=== PATIENT | female | born 1990 | race Hispanic/Latino ===

== ENCOUNTER 2019-02-13 20:39 | Emergency (ER) | payer OTHER, SELFPAY ==
[2019-02-13 21:15] LABS: #Basophils 0.1 thou/uL (0.0-0.2); #Eosinphils 0.1 thou/uL (0.0-0.7); #Lymphocytes 2.9 thou/uL (1.20-3.40); #Monocytes 0.7 thou/uL (0.11-0.59); #Neutrophils 5.2 thou/uL (1.40-6.50); %Basophils 0.8 % (0.0-1.0); %Eosinophils 1.1 % (0.0-10.0); %Lymphocytes 32.4 % (21.0-51.0); %Monocytes 7.2 % (0.0-10.0); %Neutrophils 58.5 % (42.0-75.0); Hemoglobin 12.5 g/dL (12.0-16.0); Mean Corpuscular HGB CONC 35.9 g/dL (32.0-36.0); Mean Corpuscular Hemoglobin 32.5 pg (27.0-31.0); Mean Corpuscular Volume 90.6 fL (78.0-98.0); Mean Platelet Volume 9.2 fL (7.4-10.4); Platelet Count 153 thou/uL (130-400); RBC Distribution Width 12.8 % (11.5-14.5); Red Blood Cell (RBC) Count 3.85 mill/uL (4.20-5.40); White Blood Cell (WBC) Count 8.9 thou/uL (4.8-10.8)
[2019-02-13 21:26] LABS: Bacteria/HPF 4+ HPF (None Seen); Bilirubin Negative (Negative); Blood, Urine Negative (Negative); Clarity Clear (Clear); Glucose, Urine (Dipstick) Normal (Negative); Leukocyte 250 Leu/uL (Negative); Nitrite Negative (Negative); Protein, Urine (Dipstick) Negative (Neg-Trace); RBC/HPF 0-3 HPF (0-3); Transitional Epithelial 0-3 HPF (None Seen); Urobilinogen Normal mg/dL (Less than 2)
[2019-02-13 21:36] LABS: ALT (SGPT) 12 U/L (8-55); AST (SGOT) 13 U/L (5-34); Alkaline Phosphatase 43 U/L (40-150); Anion Gap 11 mmol/L (10-20); BUN (Urea Nitrogen) 6 mg/dL (7.0-18.7); Bilirubin, Total 0.3 mg/dL (0.2-1.2); Calc. Creatinine Clearance 0 mL/min (70-130); Carbon Dioxide 23 mmol/L (22-29); Chloride 103 mmol/L (98-107); Estimated GFR-MDRD Greater than 90; Globulin 3.1 g/dL (2.4-3.5); Glucose 81 mg/dL (70-105); Potassium 3.4 mmol/L (3.5-5.1); Protein, Total 7.1 g/dL (6.0-8.3); Sodium 134 mmol/L (136-145)
== END 2019-02-13 22:32 | disposition home or self-care (01) ==
LOC: ERS 20:39
DX: O23.42 Unspecified infection of urinary tract in pregnancy, second trimester (principal); O99.342 Other mental disorders complicating pregnancy, second trimester; F41.0 Panic disorder [episodic paroxysmal anxiety]; Z3A.16 16 weeks gestation of pregnancy
CPT/HCPCS: 36415; 80053; 81003; 81015; 85025

== ENCOUNTER 2019-07-08 05:34 | Day surgery (SDC) | payer OTHER ==
[2019-07-08 06:10] VITALS: BP 109/66; TEMP 98; BMI 30.2
--- NOTE | 2019-07-08 06:30 | PDOC.FPROB ---
FMR OB H&P: HPI - History of Present Illness Chief Complaint: Contractions Indentification: History of Present Illness: Patient is a 28 y/o who presents to the Labor & Delivery Floor for evaluation of contractions. Patient states that she started feeling contractions intermittently yesterday afternoon, but was not overly concerned. She characterized them as sporadically feeling like a cramping sensation in her lower abdomen, as well as her upper abdomen and lower back. She denied any loss of fluids, and stated that she can feel her baby moving appropriately. She states that her previous pregnancies all had variable contractions, and she is unsure if these contractions are similar to those that she has felt in the past. She denies any recent illness or trauma - although she did admit to bumping her ABD against a door recently. She denies fevers, chills, headaches, changes in vision, CP or SOB, dysuria, hematuria, diarrhea or known sick contacts. She received her flu shot this year, and states that her has been relatively uneventful thus far. Primary Care Physician: [facility] - Dr. De León FMR OB H&P: Current - Care : 4 Para: 2 Gestational age: 37.1 Due date: 07/28/19 Dating Criteria: 10.5W US - OB Labs Blood type: A RH: positive Antibody Screen: negative HIV: negative RPR: negative HepBsAg: negative Rubella: immune Quad screen: unknown Urine drug screen: not done Gonorrhea: unknown GBS: unknown - First Trimester Ultrasound First trimester: 10.5W FMR OB H&P: History - Past Medical History PMH: Anxiety - OB History OB History: -Both children born via -Miscarriage occurred before 20W - cause unknown - Surgical History Sx History: None - Social History Social History: Denies x3. Currently is a [id number] parent. - Family History Family History: Father has lung cancer (type unknown) and mother has Lupus. FMR OB H&P: Medications - Current Home Medications: Medication Instructions Recorded Confirmed Type Iron 18 mg PO DAILY 05/16/14 07/08/19 History Vitamin 1 tab PO DAILY #0 tab 05/19/14 07/08/19 Rx Allergies/Adverse Reactions: Allergies Allergy/AdvReac Type Severity Reaction Status Date / Time Iodine and Iodide Containing Allergy Severe HIVES, Verified 07/08/19 06:00 Produc THROAT SWELLING FMR OB H&P: ROS - Review of Systems General: denies: fever/chills, weight/appetite/sleep changes, fatigue, recent trauma Eyes: denies: vision changes ENT: denies: rhinorrhea Cardiovascular: denies: chest pain, edema Respiratory: denies: cough, shortness of breath Gastrointestinal: denies: nausea, vomiting, diarrhea, bright red blood, dark black tarry stools Genitourinary (Female): reports: contractions. denies: dysuria, hematuria, vaginal discharge, vaginal bleeding Neurologic: denies: syncope, weakness, loss of counsciousness Psychological: reports: anxiety FMR OB H&P: Vital Signs - Maternal Vital signs: Vital Signs - First Documented Temp Pulse Resp BP 98.0 F 77 18 109/66 07/08/19 05:58 07/08/19 05:58 07/08/19 05:58 07/08/19 05:58 - Heart Tones Baseline: 140 Variability: moderate Acceleration: present Deceleration: absent Category: category 1 FMR OB H&P: Physical Exam - Physical Exam General: NAD, awake, alert and oriented Deviation from normal: Patient had 3 rapid episodes of non-bloody vomiting during exam. HEENT: normocephalic and atraumatic, PERRLA, MMM, conjunctiva clear, no scleral icterus, grossly normal vision, grossly normal hearing, normal nasal mucosa, oropharynx clear Neck: supple, FROM, trachea midline, no LAD Chest: non-tender to palpation, no lesions Breast: symmetric Heart: RRR, normal S1/S2, no murmurs/rubs/gallops, pulses present, no edema General: CTAB, no respiratory distress, good air movement, no rales/rhonchi, no wheezing, no retractions Abdomen: gravid, non-tender, no masses, no hernias Musculoskeletal: pulses present, FROM in all four extremities, no misalignment/ asymmetry, no atrophy Neurological: sensation to pain,touch and proprioception grossly normal Skin: no rash, good tugor, no jaundice Lymphatic: no unusual bruising or bleeding, no purpura, no petechia Psychiatric: intact recent and remote memory, normal mood and affect FMR OB H&P: A/P - Problem List (1) Intrauterine Current Visit: Yes Status: Acute Code(s): Z34.90 - ENCNTR FOR SUPRVSN OF NORMAL , UNSP, UNSP TRIMESTER (2) Uterine contractions Current Visit: Yes Status: Acute Code(s): FQH1722 - Disposition: Patient is a 28 y/o who presents to the Labor and Delivery Floor for evaluation of contractions. 1. Contractions -Q6-8M w/o loss of fluid or movement -Maternal VSS -FHTs in 140s w/ appropriate variability and accelerations - decels absent -Physical exam unremarkable - no loss of fluid or bloody show noted on L&D Floor -Possibly related to dehydration or sub-acute GI illness distress -Encourage PO hydration -SVE (614): /3 -Continue SVEs Q2H to assess for cervical change 2. SIUP -Continue plan as per above -GBS: Pending - Patient does not meet criteria for ABx Prophylaxis Dispo: Observe patient on L&D Floor for minimum of 4H with Q2H SVEs. Continue to monitor maternal and vital signs and encourage PO intake as per above. Expected LOS <24H Discussion: Date/Time: 07/08/19 0630 This H&P was discussed with Dr. Rivera who agree with the above documentation and plan. Addendum - Attending - Attending Attestation Date/Time: 07/08/19 0750 I personally evaluated the patient and discussed the management with Dr. Lo. I agree with the History, Examination, Assessment and Plan documented above. Pt 37w1d with possible early labor. Will continue to monitor at this time.
[2019-07-08] MEDS ORDERED: hydrALAZINE 20 MG/ML VIAL SLOW IVP PRN (07:09)
[2019-07-08] MEDS ORDERED: Ondansetron ORAL SOLN. 4 MG/5 ML UDCUP PO PRN (07:10)
[2019-07-08] MEDS ORDERED: Ondansetron ODT 4 MG TAB PO PRN (07:45)
--- NOTE | 2019-07-08 08:22 | PDOC.BPN ---
- Brief Progress Note Patient is a 28 y/o who presents to the Labor and Delivery Floor for evaluation of contractions. Labor Check: 0800 1. Contractions -Q6-8M w/o loss of fluid or movement -Maternal VSS -FHTs in 140s w/ appropriate variability and accelerations - decels absent -Physical exam unremarkable - no loss of fluid or bloody show noted on L&D Floor -Possibly related to dehydration or sub-acute GI illness distress - no repeat episodes of vomiting since last evaluation -Continue to encourage PO hydration -SVE (0615): 2/40/-3 -SVE (0800): 2/40/-3 -Continue SVEs Q2H to assess for cervical change - consider DC if SVE remains unchanged 2. SIUP -Continue plan as per above -GBS: Pending - Patient does not meet criteria for ABx Prophylaxis Dispo: Observe patient on L&D Floor for minimum of 4H with Q2H SVEs. Continue to monitor maternal and vital signs and encourage PO intake as per above. Expected LOS <24H
--- NOTE | 2019-07-08 10:35 | PDOC.BPN ---
<Kavita De León - Last Filed: 07/08/19 10:19> - Brief Progress Note Cervical check /3, unchanged from prior exam CTX spaced out with oral hydration, pt reports improvement as well Patient feels much improved, nausea resolved. Thinks ate a bad salad last night. Doesn't desire nausea meds PRN to pharmacy but advised to call up here if sxs worsen. FHT reactive & reassuring Discussed with patient labor precautions Has scheduled appt at [facility] on 07/17. Asked to call Tuesday to schedule one for this week. <Hang Nolan - Last Filed: 07/08/19 11:19> - Brief Progress Note Faculty note: I have seen the patient at bedside. Agree with plan. Stable for outpatient acre. Care reviewed/
== END 2019-07-08 10:15 | disposition home or self-care (01) ==
LOC: L&D/OP 05:34
PROVIDERS: ATTEND Obstetrics & Gynecology
DX: O47.1 False labor at or after 37 completed weeks of gestation (principal); Z3A.37 37 weeks gestation of pregnancy; Z79.899 Other long term (current) drug therapy; Z91.041 Radiographic dye allergy status
CPT/HCPCS: Q0162

== ENCOUNTER 2019-07-22 20:32 | Inpatient (IN) | payer MEDICAID, OTHER ==
--- NOTE | 2019-07-22 20:50 | PDOC.FPROB ---
FMR OB H&P: HPI - History of Present Illness Chief Complaint: eIOL Indentification: 28yo @ 39.1wks by 10.5wk sono/LMP History of Present Illness: Henny is a healthy 28 yoF who presents for eIOL. Primary Care Physician: [facility] - Dr. Kavita De León MD FMR OB H&P: Current - Care : 4 Para: 2011 Gestational age: 39.1 Due date: 07/28/2019 Dating Criteria: 10.5wk sono / LMP - OB Labs Blood type: A RH: positive Antibody Screen: negative HIV: negative RPR: negative HepBsAg: negative Rubella: immune Gonorrhea: negative Chlamydia: negative Pap Smear: NILM 11/2018 1 hour gtt: 97 - passed GBS: negative FMR OB H&P: History - Past Medical History PMH: Denies - OB History OB History: @ 40 wks. @ 38 wks. 1 spontaneous - WELT BEATER History WELT BEATER History: h/o chlamydia, treated. Not during this . - Surgical History Sx History: Denies - Social History Social History: Denies tobacco, alcohol, or illicit drug use. - Family History Family History: + for DM and SLE FMR OB H&P: Medications - Current Home Medications: Medication Instructions Recorded Confirmed Type Iron 18 mg PO DAILY 05/16/14 07/22/19 History Vitamin 1 tab PO DAILY #0 tab 05/19/14 07/22/19 Rx Allergies/Adverse Reactions: Allergies Allergy/AdvReac Type Severity Reaction Status Date / Time Iodine and Iodide Containing Allergy Severe HIVES, Verified 07/08/19 06:00 Produc THROAT SWELLING FMR OB H&P: ROS - Review of Systems General: denies: fever/chills, weight/appetite/sleep changes, night sweats, fatigue Eyes: denies: eye pain, vision changes ENT: denies: nasal congestion, rhinorrhea, sore throat Cardiovascular: denies: chest pain, palpitation Respiratory: denies: cough, congestion Gastrointestinal: denies: abdominal pain, cramping, nausea, vomiting, diarrhea Genitourinary (Female): reports: vaginal discharge. denies: dysuria, hematuria , vaginal pain, vaginal bleeding, vaginal mass/sore, contractions, vaginal pressure Musculoskeletal: denies: pain, stiffness Neurologic: denies: numbness, syncope, seizures, weakness Integumentary: denies: itching, rash Breast: denies: lumps, bumps FMR OB H&P: Vital Signs - Maternal Vital signs: 109/66, 55bpm, 98.4F - Heart Tones Baseline: 135 Variability: moderate Acceleration: present Deceleration: absent Category: category 1 [place] contractions every: irregular FMR OB H&P: Physical Exam - Physical Exam General: NAD, awake, alert and oriented HEENT: normocephalic and atraumatic, PERRLA, EOMI, MMM, conjunctiva clear, grossly normal vision, grossly normal hearing Neck: FROM, trachea midline Breast: symmetric Heart: RRR, normal S1/S2, no murmurs/rubs/gallops General: CTAB, no respiratory distress, good air movement Abdomen: soft, gravid, non-tender Musculoskeletal: normal gait and station, pulses present Neurological: cranial nerves II through XII intact Skin: no rash, good tugor Lymphatic: no unusual bruising or bleeding Psychiatric: intact recent and remote memory, good judgement and insight - Pelvic Exam Vulva: normal hair distribution SVE: 250/-2 Limon score: 5 Membranes: Intact Presentation: Cephalic FMR OB H&P: Results - Imaging Imaging: Bedside US: cephalic presentation. [place] ~10. Anterior placenta. FMR OB H&P: A/P - Problem List (1) Intrauterine Status: Acute Code(s): Z34.90 - ENCNTR FOR SUPRVSN OF NORMAL , UNSP, UNSP TRIMESTER Disposition: Term sIUP, eIOL @ 39.1wks EGA - GBS negative. Unremarkable course. Baby Boy - Erik. - Initial check 50/-2. Posterior, soft. Limon of 5. - Plan for cytotec induction of labor. Will reassess 4 hours after placement of cytotec. - Patient desires epidural. Discussion: Date/Time: 07/22/192048 This H&P was discussed with Drs. Moss and Yang who agree with the above documentation and plan. Addendum - Attending - Attending Attestation Date/Time: 07/22/192151 I personally evaluated the patient and discussed the management with Dr. Bay I agree with the History, Examination, Assessment and Plan documented above with any addition or exceptions noted below. 28 yo female at 39.1 wks here for eIOL. Will proceed with miso for induction. Low risk . Cephalic presentation. EFW 7.5 lbs. Reactive tracing. Recheck in 4 hours. Mary
[2019-07-22] MEDS ORDERED: Butorphanol Tartrate 1 MG/ML VIAL SLOW IVP PRN (21:25)
[2019-07-22] MEDS ORDERED: NS / Oxytocin 40 units/1000ml 1,000 ML IV PRN (21:25)
[2019-07-22] MEDS ORDERED: Carboprost 250 MCG/ML AMP IM PRN (21:25)
[2019-07-22] MEDS ORDERED: Promethazine HCl 25 MG/ML VIAL IM PRN (21:25)
[2019-07-22] MEDS ORDERED: Ibuprofen 800 MG TAB PO PRN (21:25)
[2019-07-22] MEDS ORDERED: Acetaminophen 500 MG TAB PO PRN (21:25)
[2019-07-22] MEDS ORDERED: Methylergonovine 0.2 MG/ML VIAL IM PRN (21:25)
[2019-07-22] MEDS ORDERED: Lidocaine 1% (PF) 30 ML VIAL SC PRN (21:25)
[2019-07-22] MEDS ORDERED: Misoprostol 200 MCG TAB PR PRN (21:25)
[2019-07-22] MEDS ORDERED: hydrALAZINE 20 MG/ML VIAL SLOW IVP PRN (21:25)
[2019-07-22] MEDS ORDERED: Ondansetron PF 4 MG/2 ML Vial IVP PRN (21:25)
[2019-07-22] MEDS ORDERED: Diphenoxylate HCl/Atropine Tablet PO PRN (21:25)
[2019-07-22 22:10] VITALS: BMI 29.5
[2019-07-22 22:29] LABS: Hemoglobin 12.5 g/dL (12.0-16.0); Mean Corpuscular HGB CONC 35.2 g/dL (32.0-36.0); Mean Corpuscular Volume 90.9 fL (78.0-98.0); Mean Platelet Volume 10.8 fL (7.4-10.4); Platelet Count 152 thou/uL (130-400); RBC Distribution Width 14.5 % (11.5-14.5); Red Blood Cell (RBC) Count 3.91 mill/uL (4.20-5.40); White Blood Cell (WBC) Count 9.8 thou/uL (4.8-10.8)
[2019-07-22] MEDS: Misoprostol 100 MCG TAB VAG SCH (22:40)
[2019-07-22] MEDS: Lactated Ringer's 1,000 ML IV SCH (22:41)
[2019-07-22 23:08] LABS: Syphilis Antibody Nonreactive (Nonreactive); Syphilis Antibody Index 0.04 S/CO (<1.00 Non-Reactive)
[2019-07-22 23:13] LABS: HBSAg Index 0.21 S/CO (0-0.99); Hep B Surf Ag Non-Reactive S/CO (NonReactive)
--- NOTE | 2019-07-23 02:00 | PDOC.LDPN ---
Labor & Delivery Progress Note - Subjective Subjective: comfortable, painful contractions, vaginal pressure - Objective Vital signs reviewed and normal: yes General: NAD, resting, breathing through contractions Uterine fundus: tender to palpation SVE: /-2 FHT: category 1 [place] contractions every: 2-3 - Assessment (1) Intrauterine Code(s): Z34.90 - ENCNTR FOR SUPRVSN OF NORMAL , UNSP, UNSP TRIMESTER Status: Acute Plan: continue plan of care, labor augmentation -: Term sIUP, eIOL @ 39.1wks EGA - GBS negative. Unremarkable course. Baby Boy - Erik. - Initial check 50/-2. Posterior, soft. Limon of 5. - /-2 @ 2200, cytotect placed. - /-2 @ 0200 - Will monitor and recheck in 2 hours to evaluate for labor augmentation. Addendum - Attending - Attending Attestation Date/Time: 07/23/19 3140 I personally evaluated the patient and discussed the management with Dr. Bay I agree with the History, Examination, Assessment and Plan documented above with any addition or exceptions noted below. Continue current plan. Doing well. Cat 1 tracing. Repeat exam in 2 hours. Mary
[2019-07-23] MEDS: Lactated Ringer's 1,000 ML IV SCH (02:01)
[2019-07-23] MEDS ORDERED: Fentanyl 4 mcg/Bup 0.1% Cadd 100 ML ONE (02:07)
[2019-07-23] MEDS ORDERED: NS / Oxytocin 40 units/1000ml 1,000 ML ONE (05:10)
[2019-07-23] MEDS ORDERED: Lidocaine 1% (PF) 30 ML VIAL ONE (05:10)
--- NOTE | 2019-07-23 05:53 | PDOC.OPDEL ---
OB Operative/Delivery Note Delivery Dr/Surgeon: Ajay De León Waldner Procedure/Post Delivery Dx: spontaneous vaginal delivery Weeks gestation: 39 (39.1 ) Anesthesia: epidural - Additional Findings/Plan Placenta delivered: spontaneous Repaired Obstetrical Laceration: 2nd degree Compilations/Other Findings: Delivering Physician: Yves De León MD, Dr. Soria Attending: Dr. Moss Procedure: Spontaneous Vaginal Delivery Anesthesia: epidural QBL: Pending Pre-op Diagnosis: 1. Term intrauterine , elective IOL 2. Excessive weight gain in Post-op Diagnosis: 1. Term intrauterine , delivered 2. same as above Indications: A 28y/o female at 39.1wga presents to L&D for elective IOL Delivery Note: This is a 28y/o female at 39.1wga who delivered a viable M at 0525 on 07/23/19. Following an uneventful intrapartum course, a vigorous male was delivered over an intact perineum in the occipitoanterior position. Anterior shoulder and then remainder of the body delivered. Nuchal x1. The head was held down and mouth and nares were bulb suctioned. Cord clamped after delayed cord clamping and cut and cord blood collected. Placenta delivered intact in the no presentation with a 3 vessel cord noted. Fundal massage was performed and the fundus was firm. The cervix and vagina were inspected and a 2nd degree perineal lacerations were noted and repaired with in the usual fashion with good approximation with 3-0 vicryl suture. went to nursery in good condition for routine care. Apgars were 9/9 at 1 & 5 minutes, respectively. Patient tolerated delivery well and went to after routine recovery/care. Post delivery plan: routine recovery Attending Note: I participated in the above documented procedure. Patient admitted for eIOL. Patient progressed well after miso x 1. of male infant at 0525 in OA position. Placenta delivered intact. 3VC. APGARs 9/9. 1st degree perineal lac, easily repaired. Continue routine pp care. ABray Post delivery plan: routine recovery
[2019-07-23] MEDS: Misoprostol 100 MCG TAB VAG SCH ×2 (06:44→07:24)
[2019-07-23] MEDS ORDERED: hydrALAZINE 20 MG/ML VIAL SLOW IVP PRN (07:26)
[2019-07-23] MEDS ORDERED: NS / Oxytocin 40 units/1000ml 1,000 ML IV SCH (07:26)
[2019-07-23] MEDS ORDERED: Methylergonovine 0.2 MG/ML VIAL IM PRN (07:26)
[2019-07-23] MEDS ORDERED: Adacel (T-DAP) 0.5 ML SYRINGE IM ONE (07:26)
[2019-07-23] MEDS ORDERED: Misoprostol 200 MCG TAB VAG PRN (07:26)
[2019-07-23] MEDS ORDERED: Ondansetron PF 4 MG/2 ML Vial IVP PRN (07:26)
[2019-07-23] MEDS ORDERED: Bisacodyl 10 MG SUPP PR PRN (07:26)
[2019-07-23] MEDS ORDERED: Lanolin Ointment 7 GM TUBE TOP PRN (07:26)
[2019-07-23] MEDS ORDERED: Benzocaine-Menthol 82.5 ML CAN TOP PRN (07:26)
[2019-07-23] MEDS ORDERED: Milk Of Magnesia 30 ML UDCUP PO PRN (07:26)
[2019-07-23] MEDS: Prenatal Vitamin 1 TAB PO SCH (10:00)
[2019-07-23] MEDS: Docusate Calcium (SURFAK) 240 MG CAP PO SCH ×2 (10:00→22:00)
[2019-07-23] MEDS: Ferrous Sulfate 325 MG TAB PO SCH ×2 (10:01→18:17)
[2019-07-23] MEDS: Ibuprofen 800 MG TAB PO SCH ×2 (13:26→22:00)
[2019-07-24] MEDS: Ibuprofen 800 MG TAB PO SCH (05:28)
--- NOTE | 2019-07-24 07:37 | PDOC.PP ---
Post Progress Note Post Day #: 1 Subjective: NAEO. Doing well. Pain well controlled. Minimal bleeding. PO intake tolerated: yes Flatus: yes Ambulation: yes Vital Signs (12 hours) Temp Pulse Resp BP Pulse Ox 07/24/19 05:29 98.5 F 56 L 14 106/58 L 97 07/24/19 00:19 98.3 F 65 14 107/59 L 98 07/23/19 19:45 98.1 F 61 12 113/62 97 Weight Weight 75.75 kg - Physical Examination General: NAD Respiratory: non-labored breathing Abdominal: no distention Neurological: no gross focal deficits Psychiatric: A&Ox3, normal affect Result Diagrams: 07/22/19 21:57 Additional Labs: Post Labs Blood Type A POSITIVE 07/22/19 21:57 Hep Bs Antigen Non-Reactive S/CO (NonReactive) 07/22/19 21:57 - Assessment/Plan 1. Term at 39.1 wks s/p , PPD1 -Doing well, on concerns, ready for home -1st degree perineal lac. healing well -Plans for vasectomy PP contraception Dispo: ready for d/c today pending bili Addendum - Attending - Attending Attestation Date/Time: 07/24/19 1047 I personally evaluated the patient and discussed the management with Dr. Davison and team. I agree with the History, Examination, Assessment and Plan documented above with any addition or exceptions noted below.
[2019-07-24 07:52] VITALS: BP 111/71; TEMP 97.7
[2019-07-24] MEDS: Ferrous Sulfate 325 MG TAB PO SCH (08:29)
[2019-07-24] MEDS: Docusate Calcium (SURFAK) 240 MG CAP PO SCH (10:10)
[2019-07-24] MEDS: Prenatal Vitamin 1 TAB PO SCH (10:10)
== END 2019-07-24 13:30 | disposition home or self-care (01) | DRG 807 ==
LOC: L&D 20:32 → 3SW 07-23 08:26
PROVIDERS: ADMIT Student in an Organized Health Care Education/Training Program; ATTEND Student in an Organized Health Care Education/Training Program
PROC: 10E0XZZ Delivery of Products of Conception, External Approach (ICD-10-PCS; principal; 2019-07-22)
PROC: 0KQM0ZZ Repair Perineum Muscle, Open Approach (ICD-10-PCS; 2019-07-22)
PROC: 3E033VJ Introduction of Other Hormone into Peripheral Vein, Percutaneous Approach (ICD-10-PCS; 2019-07-22)
DX: O70.1 Second degree perineal laceration during delivery (principal); Z37.0 Single live birth; Z3A.39 39 weeks gestation of pregnancy
CPT/HCPCS: 36415; 51702; 85027; 86780; 86850; 86900; 86901; 87340; J2001

== ENCOUNTER 2022-01-17 22:57 | Emergency (ER) | payer OTHER | END 2022-01-18 01:10 | disposition home or self-care (01) | LOC: ERS 22:57 | DX: F41.9 Anxiety disorder, unspecified (principal) | CPT/HCPCS: 71045 ==

== ENCOUNTER 2023-11-02 08:13 | Outpatient (CLI) | payer OTHER | END 2023-11-02 08:14 | disposition home or self-care (01) | LOC: ULT 08:13 | PROVIDERS: ATTEND Student in an Organized Health Care Education/Training Program | DX: R10.2 Pelvic and perineal pain (principal); N83.201 Unspecified ovarian cyst, right side | CPT/HCPCS: 76856 ==